=== PATIENT | female | born 1990 | race Caucasian/White ===

== ENCOUNTER 2016-06-11 08:37 | Emergency (ER) | payer MEDICAID ==
[~2016-06-11] VITALS: Ht 152.4 cm; Wt 48.0 kg
[2016-06-11 08:40] VITALS: BP 109/75
[2016-06-11] MEDS ORDERED: KETOROLAC 30 MG/1 ML ONE (09:28)
[2016-06-11] MEDS ORDERED: METHOCARBAMOL 750 MG TABLET ONE (09:28)
[2016-06-11] MEDS ORDERED: KETOROLAC 30 MG/1 ML IM ONE (09:30)
[2016-06-11] MEDS ORDERED: METHOCARBAMOL 750 MG TABLET PO ONE (09:30)
== END 2016-06-11 10:39 | disposition home or self-care (01) ==
LOC: ED 09:30
DX: S39.012A Strain of muscle, fascia and tendon of lower back, initial encounter (principal); X58.XXXA Exposure to other specified factors, initial encounter; Y93.89 Activity, other specified; Y99.8 Other external cause status; Y92.89 Other specified places as the place of occurrence of the external cause
CPT/HCPCS: 96372; 99283; J1885

== ENCOUNTER 2016-07-02 19:47 | Emergency (ER) | payer MEDICAID ==
[~2016-07-02] VITALS: Ht 157.5 cm; Wt 46.0 kg
[2016-07-02] MEDS ORDERED: SODIUM CHLORIDE FLUSH 10ML SYR IVF ONE (20:00)
[2016-07-02] MEDS ORDERED: SODIUM CHLORIDE 0.9% 1,000ML IVBOLUS ONE (20:00)
[2016-07-02] MEDS ORDERED: KETOROLAC 30 MG/1 ML IVPush ONE (20:00)
[2016-07-02] MEDS ORDERED: PLEASE ENTER HEIGHT AND WEIGHT MC SCH (20:00)
[2016-07-02] MEDS ORDERED: METH750T87 PO (20:09)
[2016-07-02] MEDS ORDERED: NAPR550T3 PO (20:09)
[2016-07-02] MEDS ORDERED: KETOROLAC 30 MG/1 ML ONE (20:18)
[2016-07-02 21:38] VITALS: BP 102/68
== END 2016-07-02 21:31 | disposition home or self-care (01) ==
LOC: ED 21:18
DX: J20.9 Acute bronchitis, unspecified (principal); J06.9 Acute upper respiratory infection, unspecified; E86.0 Dehydration
CPT/HCPCS: 71010; 96361; 96374; 99284; J1885; J7030

== ENCOUNTER 2016-07-10 12:46 | Emergency (ER) | payer MEDICAID ==
[~2016-07-10] VITALS: Ht 157.5 cm; Wt 52.3 kg
[~2016-07-10 12:46] MED LIST: METH750T87 PO; NAPR550T3 PO
[2016-07-10 12:50] VITALS: BP 114/72
== END 2016-07-10 13:24 | disposition home or self-care (01) ==
LOC: ED 13:12
DX: Z76.0 Encounter for issue of repeat prescription (principal); G89.29 Other chronic pain; M54.5 Low back pain; F41.1 Generalized anxiety disorder
CPT/HCPCS: 99283

== ENCOUNTER 2016-10-19 08:42 | Emergency (ER) | payer SELFPAY ==
[~2016-10-19] VITALS: Ht 152.4 cm; Wt 54.9 kg
[~2016-10-19 08:42] MED LIST changes: +NAPR-850 PO; -NAPR550T3 PO
[2016-10-19 08:43] VITALS: BP 118/82
[2016-10-19] MEDS ORDERED: IBUPROFEN 200 MG TABLET ONE (09:24)
[2016-10-19] MEDS ORDERED: IBUPROFEN 200 MG TABLET PO ONE (09:30)
== END 2016-10-19 10:19 | disposition home or self-care (01) ==
LOC: ED 10:13
DX: I89.1 Lymphangitis (principal); F17.210 Nicotine dependence, cigarettes, uncomplicated
CPT/HCPCS: 99283

== ENCOUNTER 2016-10-28 07:51 | Emergency (ER) | payer OTHER ==
[~2016-10-28] VITALS: Ht 152.4 cm; Wt 57.3 kg
[2016-10-28 08:31] VITALS: BP 112/77
== END 2016-10-28 08:33 | disposition home or self-care (01) ==
LOC: ED 08:09
DX: J20.8 Acute bronchitis due to other specified organisms (principal); B97.89 Other viral agents as the cause of diseases classified elsewhere
CPT/HCPCS: 71020; 99284

== ENCOUNTER 2016-12-26 23:42 | Inpatient (IN) | payer MEDICAID, OTHER ==
[~2016-12-26] VITALS: Ht 152.4 cm; Wt 54.3 kg
[2016-12-27] MEDS ORDERED: KETOROLAC 30 MG/1 ML IVPush ONE
[2016-12-27] MEDS ORDERED: SODIUM CHLORIDE FLUSH 10ML SYR IVF ONE
[2016-12-27] MEDS ORDERED: ACETAMINOPHEN 500 MG TABLET PO ONE
[2016-12-27] MEDS ORDERED: KETOROLAC 30 MG/1 ML ONE (00:16)
[2016-12-27] MEDS ORDERED: ACETAMINOPHEN 500 MG TABLET ONE (00:16)
[2016-12-27 00:22] LABS: MEAN CORPUSCULAR HEMOGLOBIN 28.7 pg (27.0-34.8); MEAN CORPUSCULAR HGB CONC 33.7 g/dL (32.4-35.8); MEAN PLATELET VOLUME 7.4 fL (7.4-10.4); PLATELET COUNT 195 x10^3/uL (130-400); RED CELL DISTRIBUTION WIDTH 13.7 % (9.6-15.2)
[2016-12-27 00:34] LABS: ALANINE AMINOTRANSFERASE 16 U/L (12-78); ALBUMIN 3.3 g/dL (3.4-5.0); ANION GAP 11 mmol/L (5-15); CALCIUM 7.5 mg/dL (8.5-10.1); CHLORIDE 102 mmol/L (98-107); CREATININE 0.61 mg/dL (0.55-1.02)
[2016-12-27 00:37] LABS: ALKALINE PHOSPHATASE 77 U/L (45-117); BILIRUBIN,TOTAL 0.9 mg/dL (0.2-1.0); TOTAL PROTEIN 6.8 g/dL (6.4-8.2)
[2016-12-27 00:43] LABS: RAPID INFLUENZA A Negative (Negative); RAPID INFLUENZA B Negative (Negative)
[2016-12-27] MEDS ORDERED: SODIUM CHLORIDE 0.9% 1,000ML IVBOLUS ONE ×2 (01:00)
[2016-12-27 01:20] LABS: CULTURE INDICATED? YES; MICROSCOPIC INDICATED
[2016-12-27 01:28] LABS: BASOPHILS # (AUTO) 0.01 x10^3/uL (0-0.1); BASOPHILS % (AUTO) 0 % (0-1); EOSINOPHILS # (AUTO) 0.01 x10^3/uL (0-0.4); EOSINOPHILS % (AUTO) 0 % (1-7); LYMPHOCYTES # (AUTO) 0.87 x10^3/uL (1-3.4); LYMPHOCYTES % (AUTO) 5 % (22-44); MD SCAN; MONOCYTES # (AUTO) 0.67 x10^3/uL (0.2-0.8); MONOCYTES % (AUTO) 4 % (2-9); NEUTROPHILS # (AUTO) 14.95 x10^3/uL (1.8-6.8); NEUTROPHILS % (AUTO) 91 % (42-75)
[2016-12-27] MEDS ORDERED: CEFTRIAXONE PMX 1GM/50ML 50 ML ONE (01:48)
[2016-12-27] MEDS ORDERED: hydrALAzine 20 MG/ML, 1ML IVPush PRN (02:00)
[2016-12-27] MEDS ORDERED: ENOXAPARIN 40 MG/0.4 ML SQ SCH (02:00)
[2016-12-27] MEDS ORDERED: LORazepam 1MG TABLET PO PRN (02:00)
[2016-12-27] MEDS ORDERED: CEFTRIAXONE PMX 1GM/50ML 50 ML IV ONE (02:00)
[2016-12-27] MEDS ORDERED: HYDROmorphone 2 MG/ML, 1ML IVPush PRN (02:00)
[2016-12-27] MEDS ORDERED: ONDANSETRON 2MG/ML, 2ML IVPush PRN (02:00)
[2016-12-27] MEDS ORDERED: ACETAMINOPHEN 325 MG TABLET PO PRN (02:00)
[2016-12-27 02:47] VITALS: BP 93/71
[2016-12-27] MEDS: SODIUM CHLORIDE 0.9% 1,000 ML IV SCH ×2 (03:12→11:36)
[2016-12-27 06:48] VITALS: BP 93/61
[2016-12-27] MEDS ORDERED: FAMOTIDINE 20 MG/2 ML IVPush SCH (09:00)
[2016-12-27 13:50] VITALS: BP 113/75
[2016-12-27] MEDS ORDERED: CEFTRIAXONE PMX 1GM/50ML 50 ML IV SCH (14:00)
[2016-12-27] MEDS ORDERED: PNEUMOCOCCAL 23 VACCINE IM-VACC ONE (14:00)
[2016-12-27] MEDS ORDERED: FLU VACC QS2017-18 (36MOS+) UP/PF 0.5 ML IM-VACC ONE (14:00)
== END 2016-12-27 14:52 | disposition home or self-care (01) | DRG 690 ==
LOC: ED 12-27 00:17 → EDIP 12-27 01:48 → 4WST 12-27 02:33
PROVIDERS: ADMIT Family Medicine; ATTEND Internal Medicine
DX: N12 Tubulo-interstitial nephritis, not specified as acute or chronic (principal); R56.9 Unspecified convulsions; W18.39XA Other fall on same level, initial encounter; J06.9 Acute upper respiratory infection, unspecified; S01.111A Laceration without foreign body of right eyelid and periocular area, initial encounter; R55 Syncope and collapse; Y93.89 Activity, other specified; Y92.89 Other specified places as the place of occurrence of the external cause; Y99.8 Other external cause status
CPT/HCPCS: 36415; 71010; 80053; 81001; 83605; 85025; 87040; 87086; 87400; 90686; 90732; 93005; 96361; 96365; 96375; J0696; J1650; J1885; J7030; S0028

== ENCOUNTER 2017-12-01 19:44 | Emergency (ER) | payer MEDICAID, OTHER ==
[~2017-12-01] VITALS: Ht 157.5 cm; Wt 50.0 kg
[2017-12-01] MEDS ORDERED: THIAMINE 100 MG/ML, 2ML IM ONE (20:00)
[2017-12-01] MEDS ORDERED: SODIUM CHLORIDE 0.9% 1,000ML IVBOLUS ONE ×2 (20:00→22:00)
[2017-12-01] MEDS ORDERED: PROMETHAZINE 25 MG/ML, 1ML IM ONE (20:00)
[2017-12-01] MEDS ORDERED: ONDANSETRON ODT 4 MG PO ONE (20:00)
[2017-12-01] MEDS ORDERED: SODIUM CHLORIDE FLUSH 10ML SYR IVF ONE (20:00)
[2017-12-01] MEDS ORDERED: MORPHINE SULFATE 4 MG/ML, 1ML IVPush ONE (20:00)
[2017-12-01] MEDS ORDERED: LORazepam 2 MG/ML, 1ML IVPush PRN (20:00)
[2017-12-01] MEDS ORDERED: PROMETHAZINE 25 MG/ML, 1ML ONE (20:04)
[2017-12-01] MEDS ORDERED: THIAMINE 100 MG/ML, 2ML ONE (20:05)
[2017-12-01] MEDS ORDERED: ONDANSETRON ODT 4 MG ONE (20:05)
[2017-12-01] MEDS ORDERED: LORazepam 2 MG/ML, 1ML ONE (20:05)
[2017-12-01] MEDS ORDERED: MORPHINE SULFATE 4 MG/ML, 1ML ONE (20:05)
[2017-12-01 20:33] LABS: BASOPHILS # (AUTO) 0.02 x10^3/uL (0-0.1); BASOPHILS % (AUTO) 0 % (0-1); EOSINOPHILS # (AUTO) 0.25 x10^3/uL (0-0.4); EOSINOPHILS % (AUTO) 2 % (1-7); LYMPHOCYTES # (AUTO) 1.07 x10^3/uL (1-3.4); LYMPHOCYTES % (AUTO) 6 % (22-44); MD NO; MEAN CORPUSCULAR HEMOGLOBIN 29.9 pg (27.0-34.8); MEAN CORPUSCULAR HGB CONC 33.3 g/dL (32.4-35.8); MEAN CORPUSCULAR VOLUME 89.8 fL (80-100); MEAN PLATELET VOLUME 7.6 fL (7.4-10.4); MONOCYTES # (AUTO) 0.77 x10^3/uL (0.2-0.8); MONOCYTES % (AUTO) 5 % (2-9); NEUTROPHILS # (AUTO) 14.71 x10^3/uL (1.8-6.8); NEUTROPHILS % (AUTO) 88 % (42-75); PLATELET COUNT 273 x10^3/uL (130-400); RED BLOOD COUNT 5.44 x10^6/uL (3.82-5.3); RED CELL DISTRIBUTION WIDTH 14.5 % (9.6-15.2)
[2017-12-01 20:40] LABS: ALANINE AMINOTRANSFERASE 20 U/L (12-78); ALBUMIN 3.8 g/dL (3.4-5.0); ANION GAP 10 mmol/L (5-15); CALCIUM 8.1 mg/dL (8.5-10.1); CHLORIDE 109 mmol/L (98-107); CREATININE 0.73 mg/dL (0.55-1.02)
[2017-12-01 20:42] LABS: ALKALINE PHOSPHATASE 86 U/L (45-117); BILIRUBIN,TOTAL 0.4 mg/dL (0.2-1.0); TOTAL PROTEIN 7.7 g/dL (6.4-8.2)
[2017-12-01 20:54] LABS: HCG UR SG 1.026 (1.003-1.030)
[2017-12-01 20:55] LABS: CULTURE INDICATED? YES; MICROSCOPIC INDICATED
[2017-12-01] MEDS ORDERED: OMNIPAQUE 350 MG/ML, 100ML BOTTLE ONE (21:29)
[2017-12-01 22:48] VITALS: BP 118/59
== END 2017-12-01 22:59 | disposition home or self-care (01) ==
LOC: ED 21:50
DX: K29.20 Alcoholic gastritis without bleeding (principal); D72.829 Elevated white blood cell count, unspecified; R10.84 Generalized abdominal pain; Z72.9 Problem related to lifestyle, unspecified; F10.20 Alcohol dependence, uncomplicated
CPT/HCPCS: 36415; 71045; 74177; 80053; 80307; 81001; 81025; 83690; 85025; 87086; 96361; 96372; 96374; 96375; 99285; J2060; J2550; J3411; J7030; Q0162; Q9967

== ENCOUNTER 2017-12-04 20:46 | Emergency (ER) | payer MEDICAID ==
[~2017-12-04] VITALS: Ht 162.6 cm; Wt 58.0 kg
[2017-12-04] MEDS ORDERED: ACETAMINOPHEN 500 MG TABLET ONE (21:19)
[2017-12-04] MEDS ORDERED: ACETAMINOPHEN 500 MG TABLET PO ONE (21:30)
[2017-12-04 21:41] LABS: BASOPHILS # (AUTO) 0.05 x10^3/uL (0-0.1); BASOPHILS % (AUTO) 1 % (0-1); EOSINOPHILS # (AUTO) 0.36 x10^3/uL (0-0.4); EOSINOPHILS % (AUTO) 4 % (1-7); LYMPHOCYTES # (AUTO) 2.85 x10^3/uL (1-3.4); LYMPHOCYTES % (AUTO) 29 % (22-44); MD NO; MEAN CORPUSCULAR HEMOGLOBIN 29.9 pg (27.0-34.8); MEAN CORPUSCULAR HGB CONC 33.5 g/dL (32.4-35.8); MEAN CORPUSCULAR VOLUME 89.3 fL (80-100); MEAN PLATELET VOLUME 7.5 fL (7.4-10.4); MONOCYTES # (AUTO) 0.79 x10^3/uL (0.2-0.8); MONOCYTES % (AUTO) 8 % (2-9); NEUTROPHILS # (AUTO) 5.64 x10^3/uL (1.8-6.8); NEUTROPHILS % (AUTO) 58 % (42-75); PLATELET COUNT 261 x10^3/uL (130-400); RED BLOOD COUNT 4.89 x10^6/uL (3.82-5.3); RED CELL DISTRIBUTION WIDTH 14.4 % (9.6-15.2)
[2017-12-04 21:52] LABS: ACETAMINOPHEN < 2 mcg/mL (10-30); ALBUMIN 3.8 g/dL (3.4-5.0); ANION GAP 9 mmol/L (5-15); CALCIUM 8.5 mg/dL (8.5-10.1); CHLORIDE 112 mmol/L (98-107); CREATININE 0.64 mg/dL (0.55-1.02); SALICYLATE LEVEL < 1.7 mg/dL (2.8-20.0)
[2017-12-04 22:02] LABS: HCG UR SG < 1.005 (1.003-1.030)
[2017-12-04 22:20] VITALS: BP 105/74
== END 2017-12-04 22:25 | disposition home or self-care (01) ==
LOC: ED 21:50
DX: G40.909 Epilepsy, unspecified, not intractable, without status epilepticus (principal); F17.200 Nicotine dependence, unspecified, uncomplicated
CPT/HCPCS: 70450; 72125; 80048; 80307; 80329; 81025; 82040; 82962; 85025; 93005; 99285; G0480

== ENCOUNTER 2019-01-18 07:25 | Emergency (ER) | payer MEDICAID ==
[~2019-01-18] VITALS: Ht 149.9 cm; Wt 54.2 kg
[2019-01-18 07:33] VITALS: BP 117/80
== END 2019-01-18 07:57 | disposition home or self-care (01) ==
LOC: ED 07:51
DX: Q82.5 Congenital non-neoplastic nevus (principal); D22.61 Melanocytic nevi of right upper limb, including shoulder; G40.909 Epilepsy, unspecified, not intractable, without status epilepticus
CPT/HCPCS: 99281

== ENCOUNTER 2020-06-29 16:50 | Outpatient (CLI) | payer SELFPAY ==
[2020-06-29 17:45] LABS: BASOPHILS % (AUTO) 1 % (0-1); EOSINOPHILS % (AUTO) 1 % (1-7); LYMPHOCYTES % (AUTO) 23 % (22-44); MEAN CORPUSCULAR HGB CONC 32.8 g/dL (32.4-35.8); MEAN PLATELET VOLUME 7.2 fL (7.4-10.4); MONOCYTES % (AUTO) 5 % (2-9); NEUTROPHILS % (AUTO) 70 % (42-75); PLATELET COUNT 307 x10^3/uL (130-400); RED BLOOD COUNT 4.05 x10^6/uL (3.82-5.3); RED CELL DISTRIBUTION WIDTH 15.5 % (9.6-15.2)
[2020-06-29 17:49] LABS: MD NO
[2020-06-29 19:17] LABS: AMPHETAMINE SCREEN, URINE Positive (Negative); BARBITURATE SCREEN, URINE Negative (Negative); BENZODIAZEPINE SCREEN, URINE Negative (Negative); CANNABINOID SCREEN, URINE Positive (Negative); COCAINE SCREEN, URINE Negative (Negative); METHADONE SCREEN, URINE Negative (Negative); OPIATE SCREEN, URINE Negative (Negative)
== END 2020-06-29 21:35 | disposition home or self-care (01) ==
LOC: LDOP 16:50
PROVIDERS: ATTEND Obstetrics & Gynecology
DX: O26.893 Other specified pregnancy related conditions, third trimester (principal); R10.9 Unspecified abdominal pain; Z3A.37 37 weeks gestation of pregnancy
CPT/HCPCS: 36415; 59025; 76805; 80307; 85025; 86592; 86762; 86850; 86900; 87081; 87340; 87491; 87591; 87806; G0475